=== PATIENT | male | born 1965 | race Caucasian/White ===

== ENCOUNTER 2019-02-04 13:06 | Emergency (ER) | payer MEDICAID ==
[~2019-02-04] VITALS: Ht 172.7 cm; Wt 82.6 kg
[2019-02-04 13:20] VITALS: BP 98/77
--- NOTE | 2019-02-04 15:13 | NUR ---
PT AMBULATED TO BED 06
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
[2019-02-04] MEDS ORDERED: ACETAMINOPHEN 325 MG TAB PO ONE (16:15)
--- NOTE | 2019-02-04 16:21 | NUR ---
X-RAY AT BEDSIDE AT THIS TIME
[2019-02-04] MEDS ORDERED: NEOMYCIN/POLYMYXIN/BACITRACIN 0.9 GM/1 PKT TP ONE (16:50)
[2019-02-04 17:05] VITALS: BP 100/80
--- NOTE | 2019-02-04 17:05 | NUR ---
Patient discharged with v/s stable. Written and verbal after care instructions given and explained. Patient verbalized understanding. Ambulatory with steady gait. All questions addressed prior to discharge. Advised to follow up with PMD.
== END 2019-02-04 17:05 | disposition home or self-care (01) ==
LOC: MED 13:06
DX: S80.12XA Contusion of left lower leg, initial encounter (principal); V13.4XXA Pedal cycle driver injured in collision with car, pick-up truck or van in traffic accident, initial encounter; Y93.89 Activity, other specified; Y92.89 Other specified places as the place of occurrence of the external cause; Y99.8 Other external cause status
CPT/HCPCS: 73590; 90471; 90715; 99283; Q0092

== ENCOUNTER 2019-02-15 13:54 | Emergency (ER) | payer MEDICAID ==
[~2019-02-15] VITALS: Ht 175.3 cm; Wt 81.6 kg
[2019-02-15 14:07] VITALS: BP 113/45
--- NOTE | 2019-02-15 14:11 | NUR ---
AMBULATED WITH CANE. WAIT AT [facility].
--- NOTE | 2019-02-15 15:22 | NUR ---
PATIENT AMBULATED TO ER CHAIR A
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
[2019-02-15] MEDS ORDERED: KETOROLAC 60 MG/2 ML VIAL IM ONE (16:25)
[2019-02-15] MEDS ORDERED: SULFAMETH/TRIMETH DS 800/160MG 1 TAB PO ONE (17:10)
--- NOTE | 2019-02-15 17:28 | NUR ---
WOUND CARE PERFORMED, AEROBIC CULTURE COLLECTED.
[2019-02-15 17:40] VITALS: BP 110/64
--- NOTE | 2019-02-15 17:43 | NUR ---
GAVE CRUTCHES TO PATIENT AND PATIENT DEMONSTRATED PROPER USE OF CRUTCHES
--- NOTE | 2019-02-15 17:46 | NUR ---
Patient discharged with v/s stable. Written and verbal after care instructions given and explained. Patient alert, oriented and verbalized understanding of instructions. Ambulatory with steady gait. All questions addressed prior to discharge. ID band removed. Patient advised to follow up with PMD. Rx of NORCO, IBUPROFEN, CLINDAMYCIN, BACTRIM given. Patient educated on indication of medication including possible reaction and side effects. Opportunity to ask questions provided and answered.
== END 2019-02-15 17:40 | disposition home or self-care (01) ==
LOC: MED 13:54
DX: L03.116 Cellulitis of left lower limb (principal); L97.929 Non-pressure chronic ulcer of unspecified part of left lower leg with unspecified severity; E03.9 Hypothyroidism, unspecified
CPT/HCPCS: 73590; 87070; 87186; 93971; 96372; 99284; J1885; Q0092

== ENCOUNTER 2020-04-13 18:32 | Emergency (ER) | payer MEDICAID ==
[~2020-04-13] VITALS: Ht 172.7 cm; Wt 87.1 kg
[2020-04-13 18:33] VITALS: BP 130/49
--- NOTE | 2020-04-13 18:37 | NUR ---
PT AMBULATED TO BED 11.
--- NOTE | 2020-04-13 19:01 | NUR ---
X RAY AT BEDSIDE.
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
--- NOTE | 2020-04-13 19:02 | NUR ---
PORTABLE X-RAYS DONE
--- NOTE | 2020-04-13 19:06 | NUR ---
RECIVED REPORT FROM NISREEN BERNAL. CONTINUATION OF CARE.
[2020-04-13 20:00] VITALS: BP 132/55
--- NOTE | 2020-04-13 20:00 | NUR ---
Patient discharged with v/s stable. Written and verbal after care instructions given and explained. Patient alert, oriented and verbalized understanding of instructions. Ambulatory with steady gait. All questions addressed prior to discharge. ID band removed. Patient advised to follow up with PMD. Rx of IBUPROFEN,CLOTRIMAZOLE given. Patient educated on indication of medication including possible reaction and side effects. Opportunity to ask questions provided and answered.
== END 2020-04-13 20:00 | disposition home or self-care (01) ==
LOC: MED 18:32
DX: S90.211A Contusion of right great toe with damage to nail, initial encounter (principal); B35.3 Tinea pedis; E03.9 Hypothyroidism, unspecified; W50.0XXA Accidental hit or strike by another person, initial encounter; Y93.89 Activity, other specified; Y92.89 Other specified places as the place of occurrence of the external cause; Y99.8 Other external cause status
CPT/HCPCS: 73660; 99283; Q0092

== ENCOUNTER 2020-04-19 19:03 | Emergency (ER) | payer MEDICAID ==
[~2020-04-19] VITALS: Ht 172.7 cm; Wt 88.9 kg
[2020-04-19 19:08] VITALS: BP 128/71
[2020-04-19 19:59] VITALS: BP 128/71
== END 2020-04-19 20:17 | disposition home or self-care (01) ==
LOC: MED 19:03
DX: R51.9 Headache, unspecified (principal); E03.9 Hypothyroidism, unspecified; Z01.818 Encounter for other preprocedural examination
CPT/HCPCS: 99282

== ENCOUNTER 2020-04-25 13:25 | Emergency (ER) | payer MEDICAID ==
[~2020-04-25] VITALS: Ht 172.7 cm; Wt 87.1 kg
[2020-04-25 13:30] VITALS: BP 116/77
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
[2020-04-25 15:22] VITALS: BP 116/77
== END 2020-04-25 15:23 | disposition home or self-care (01) ==
LOC: MED 13:25
DX: L03.90 Cellulitis, unspecified (principal); E03.9 Hypothyroidism, unspecified
CPT/HCPCS: 99283